=== PATIENT | male | born 1975 | race Caucasian/White ===

== ENCOUNTER 2023-06-11 12:10 | Emergency (ER) | payer SELFPAY ==
[2023-06-11 12:24] VITALS: PULSE 62; RESP 16; TEMP 36.9; O2SAT 95; BMI 25.0
[2023-06-11 12:30] VITALS: BP 169/101; PULSE 68; RESP 18; O2SAT 94
--- NOTE | 2023-06-11 12:30 | ED_ITS ---
HPI - Abdominal Pain General: Chief Complaint: Abdominal Pain Stated Complaint: abd pain and swelling Time Seen by Provider: 06/11/23 12:27 History of Present Illness: 47-year-old male presents emergency room with abdominal pain for the past 3 weeks. Patient describes the pain as cramping sensation with severity of 5 out of 10 mostly diffusely. She has also noticed some bloating and distention of his abdomen within the past 3 weeks as well. Further reviews drinking about 6 beers with 5 shots of whiskey daily for many years. Reviewed some nausea but no vomiting. Denies any vomiting blood or coughing up blood. Bloody stool or dark stool. No recent fall or trauma to the abdomen. Patient has any dysuria, hematuria urine frequency. Associated Symptoms: Reports bloating and nausea; Denies belching, chills, coffee ground emesis, constipation, diarrhea, fever(s), heartburn, hematemesis, fecal incontinence and vomiting Review of Systems General: Reports: 10 or more systems reviewed and unremarkable except in HPI and below Const: Denies: fever(s), chills, body aches, change in appetite, change in weight, fatigue, malaise, night sweats, diaphoresis, change in sleep pattern or daytime sleepiness GI: Reports: abdominal pain, nausea and bloating; Denies: vomiting, hematemesis, coffee ground emesis, dysphagia, heartburn, early satiety, diarrhea, constipation, belching, fecal incontinence, pain on defecation, rectal swelling or rectal itching Physical Exam Const: COMMON NORMALS: no acute distress, average body habitus, patient oriented x3, no limitations, healthy appearing, alert and well nourished Neck/C-Spine: COMMON NORMALS: no JVD Resp: COMMON NORMALS: normal respiratory effort, No retractions, No use of accessory muscles, clear to auscultation bilaterally and percussion normal AUSCULTATION: clear to auscultation bilaterally PERCUSSION: percussion normal Cardio: COMMON NORMALS: no JVD, regular rate, regular rhythm, S1 normal heart sound present, S2 normal heart sound present, No gallops present (Cardio), No clicks present (Cardio), No murmurs present (Cardio), No rub (Cardio) and Peripheral pulses 2+ throughout RATE: regular rate RHYTHM: regular rhythm HEART SOUNDS: S1 normal heart sound present and S2 normal heart sound present PERIPHERAL PULSES: Peripheral pulses 2+ throughout GI: INSPECTION: Yes Abdominal wall edema, No incision, No visible herniation, No visible peristalsis, No Fluid wave present, No Localized GI swelling present, No GI erythema present, No GI tube present and No GI ostomy present PERCUSSION: no fluid wave Extremity: COMMON NORMALS: normal to inspection, full ROM and capillary refill normal; negative for no joint enlargement, negative for no clubbing, cyanosis or edema, negative for no calf tenderness and negative for no pedal edema Neuro: COMMON NORMALS: patient oriented x3 SENSORIUM/ORIENTATION: Yes alert Course Vital Signs: Vital signs: Vital Signs Temperature 98.5 F 06/11/23 12:24 Pulse Rate 79 06/11/23 15:31 Respiratory Rate 17 06/11/23 15:31 Blood Pressure 131/88 06/11/23 15:31 Pulse Oximetry 93 06/11/23 15:31 Oxygen Delivery Me thod Room Air 06/11/23 13:00 MDM - Abdominal Pain Medical Decision Making Patient made comfortable emergency room patient had extensive work-up done including CBC, CMP, lipase, BMP and UA. Patient had a CT scan done. Because the lab finding and the CT finding with patient and mother. Patient reveals decreased pain upon reassessment. She will be given referral to see GI for further evaluation. He was educated about alcohol abuse. Differential Diagnosis Likely abdominal pain, acute appendicitis, calculus of kidney, constipation, diverticulitis, gastroenteritis, pancreatitis and small bowel obstruction Lab Data 06/11/23 13:52 06/11/23 13:52 Labs/Radiology: Laboratory Results WBC 9.3 10^3/uL (4.0-10.0) 06/11/23 13:52 RBC 4.39 10^6/uL (4.1-5.3) 06/11/23 13:52 Hgb 14.7 g/dL (11.7-16.6) 06/11/23 13:52 Hct 43.8 % (42.0-52.0) 06/11/23 13:52 MCV 99.8 fl (80-94) H 06/11/23 13:52 MCH 33.5 pg (28.0-34.0) 06/11/23 13:52 MCHC 33.6 g/dL (30.0-36.0) 06/11/23 13:52 RDW 13.3 % (12.1-15.1) 06/11/23 13:52 Plt Count 236 10^3/cmm (130-400) 06/11/23 13:52 MPV 10.1 fL (7.4-10.4) 06/11/23 13:52 Neut % (Auto) 70.7 % 06/11/23 13:52 Lymph % (Auto) 19.5 % 06/11/23 13:52 Cocke % (Auto) 6.5 % 06/11/23 13:52 Eos % (Auto) 1.0 % 06/11/23 13:52 Baso % (Auto) 0.9 % 06/11/23 13:52 Neut # (Auto) 6.61 10^3/uL (1.8-7.7) 06/11/23 13:52 Lymph # (Auto) 1.8 10^3/uL (0.8-4.8) 06/11/23 13:52 Cocke # (Auto) 0.6 10^3/uL (0.2-0.9) 06/11/23 13:52 Eos # (Auto) 0.1 10^3/uL (0.0-0.8) 06/11/23 13:52 Baso # (Auto) 0.1 10^3/uL (0.0-0.1) 06/11/23 13:52 Nucleated RBC % (auto) 0 % 06/11/23 13:52 Nucleated RBCs # 0.0 /100WBC 06/11/23 13:52 Sodium 139 mmol/L (136-145) 06/11/23 13:52 Potassium 4.6 mmol/L (3.5-5.1) 06/11/23 13:52 Chloride 100 mmol/L (98-107) 06/11/23 13:52 Carbon Dioxide 29 mmol/L (22-29) 06/11/23 13:52 Anion Gap 14.6 (5-19) 06/11/23 13:52 BUN 6 mg/dL (6-20) 06/11/23 13:52 Creatinine 0.6 mg/dL (0.7-1.2) L 06/11/23 13:52 GFR Calculation 145.7 mL/min (90-130) H 06/11/23 13:52 Glucose 110 mg/dL (65-115) 06/11/23 13:52 Calculated Osmolality 286 mOsm/kg (285-295) 06/11/23 13:52 Calcium 9.8 mg/dL (8.5-10.5) 06/11/23 13:52 Total Bilirubin 0.5 mg/dL (0.15-1.2) 06/11/23 13:52 AST 52 U/L (0-40) H 06/11/23 13:52 ALT 52 U/L (0-41) H 06/11/23 13:52 Alkaline Phosphatase 121 U/L (40-130) 06/11/23 13:52 NT-Pro-B Natriuret Pep 138 pg/mL (0-125) H 06/11/23 13:52 Total Protein 7.4 g/dL (6.6-8.7) 06/11/23 13:52 Albumin 4.4 g/dL (3.5-5.2) 06/11/23 13:52 Globulin 3.0 g/dL (1.3-4.6) 06/11/23 13:52 Lipase 14 U/L (13-60) 06/11/23 13:52 Urine Color Straw (Yellow) 06/11/23 13:52 Urine Appearance Clear (CLEAR) 06/11/23 13:52 Urine pH 7 (5-7) 06/11/23 13:52 Ur Specific [place] 1.005 (1.005-1.030) 06/11/23 13:52 Urine Protein Neg (Negative) 06/11/23 13:52 Urine Glucose (UA) Norm (Normal) 06/11/23 13:52 Urine Ketones Negative (Negative) 06/11/23 13:52 Urine Blood Neg (Negative) 06/11/23 13:52 Urine Nitrate Negative (Negative) 06/11/23 13:52 Urine Bilirubin Neg (Negative) 06/11/23 13:52 Urine Urobilinogen Norm mg/dL (Negative) 06/11/23 13:52 Ur Leukocyte Esterase Negative (Negative) 06/11/23 13:52 Ethyl Alcohol < 10 mg/dL (0-10) 06/11/23 13:52 Discharge Plan Discharge Patient Disposition: Home Clinical Impression: Abdominal pain, Transaminitis, Alcohol abuse Condition: Stable Prescriptions: New promethazine 25 mg tablet 25 mg PO Q6H PRN (Reason: nausea and vomiting) Qty: 20 0RF Rx Instructions: 3 doses during day; last dose no later than 4 hr before bedtime dicyclomine 20 mg tablet 20 mg PO BID PRN (Reason: abd pain ) Qty: 30 0RF No Action Celebrex 200 mg Capsule 200 mg PO DAILY propranolol 60 mg Capsule,Extended Release 24 Hr 60 mg PO DAILY Tums 500 500 mg calcium (1,250 mg) Tablet,Chewable 500 mg PO Q6H PRN (Reason: Indigestion) albuterol sulfate 90 mcg/actuation Hfa Aerosol Inhaler 2 puff INHALATION Q6H PRN (Reason: Shortness Of Breath) Discharge Orders: Discharge ED (Routine); Ordered 06/11/23 Ordered By: Krista Daniels Referrals: Cail Coon DO [Physician] - 7-10 days Discharge Diet: Advance as tolerated Discharge Activity: Resume usual activity Patient Instructions: Abdominal Pain (ED), Opioid Safety, Pain Management Coding Level of Care Code ED [employer] for Nghia Chacon
[2023-06-11 13:00] VITALS: BP 151/94; PULSE 69; RESP 16; O2SAT 94
--- NOTE | 2023-06-11 13:31 | CT_ITS ---
WS: [id number] CT ABDOMEN AND PELVIS WITH CONTRAST HISTORY: Lower abdominal pain for 3 weeks TECHNIQUE: Imaging performed of the abdomen and pelvis with IV contrast. Single phase imaging of the abdomen. Coronal and sagittal reformats are submitted. All CT scans at [facility] use at [address] one of these dose optimization techniques: automated exposure control; mA and/or kV adjustment per patient size (includes targeted exams where dose is matched to clinical indication); or iterative re construction. IV CONTRAST: Omnipaque 350; 100 mL IV. Oral contrast: No DLP: 614.63 mGy.cm COMPARISON: None available. Lower thorax: Lung bases are clear. Heart is normal size. Small fat-containing umbilical hernia. Liver/biliary system: Low-attenuation area is too small to characterize in the medial segment left lo be of the liver measuring 12 mm. This is close to the marck hepatis. Mild hepatic steatosis. Gallbladder: Cholelithiasis without acute cholecystitis. No gallbladder wall thickening or pericholec ystic fluid. Pancreas: Normal size pancreas and pancreatic duct. No adjacent inflammation. Spleen: Incidental note is made of a splenule. Normal spleen. Adrenal glands: Normal. Right kidney: Superior pole right renal cyst measures 6 mm. No solid mass right kidney. Left kidney: Normal. Aorta: Mild atherosclerosis abdominal aorta with no aneurysm. Lymphadenopathy: None. Free fluid: None. GI tract: Normally distended stomach. No small bowel obstruction. Normal appendix. No diverticulitis. Abdominal wall: Unremarkable abdominal wall. No hernia. Pelvis: Mild prostate gland enlargement. Bones: Unremarkable. IMPRESSION: 1. No acute abdominal or pelvic abnormalities are identified. 2. No evidence for diverticulitis. 3. Normal appendix. 4. Mild atherosclerosis aorta. 5. Too small to characterize 12 mm area of decreased attenuation in the liver. Favor this is probabl y hepatic steatosis or small cluster of cyst. 6. Cholelithiasis without acute cholecystitis.
[2023-06-11 13:51] VITALS: RESP 18; O2SAT 94
[2023-06-11] MEDS: morphine 4 mg/mL SDV 1 mL IVP (13:51)
[2023-06-11] MEDS: ondansetron 2 mg/ML SDV 2 mL 4 MG IVP (13:51)
[2023-06-11 13:59] LABS: Add Urine Microscopic? NO; Charge for UA Resulting for Rev
[2023-06-11 14:01] LABS: Basophils # 0.1 10^3/uL (0.0-0.1); Basophils % 0.9 %; Eosinophils # 0.1 10^3/uL (0.0-0.8); Hematocrit 43.8 % (42.0-52.0); Hemoglobin 14.7 g/dL (11.7-16.6); Lymphocytes # 1.8 10^3/uL (0.8-4.8); Lymphocytes % 19.5 %; Mean Corpuscular HGB Conc 33.6 g/dL (30.0-36.0); Mean Corpuscular Hemoglobin 33.5 pg (28.0-34.0); Mean Corpuscular Volume 99.8 fl (80-94); Mean Platelet Volume 10.1 fL (7.4-10.4); Monocytes # 0.6 10^3/uL (0.2-0.9); Monocytes % 6.5 %; Neutrophils # 6.61 10^3/uL (1.8-7.7); Neutrophils % 70.7 %; Nucleated Red Blood Cells % 0 %; Platelet Count 236 10^3/cmm (130-400); Red Blood Count 4.39 10^6/uL (4.1-5.3); Red Cell Distribution Width 13.3 % (12.1-15.1); White Blood Count 9.3 10^3/uL (4.0-10.0)
[2023-06-11 14:06] LABS: Bilirubin Urine Neg (Negative); Blood Urine Neg (Negative); Glucose Urine UA Norm (Normal); Ketones Urine Negative (Negative); Leukocyte Esterase Urine Negative (Negative); Nitrate Urine Negative (Negative); Protein Urine Neg (Negative); Specific Gravity, Urine 1.005 (1.005-1.030); Urine Appearance Clear (CLEAR); Urine Color Straw (Yellow); Urobilinogen Urine Norm (Negative); pH Urine 7 (5-7)
[2023-06-11] MEDS: iohexol 350 mg/mL 500 mL Btl (per mL) IV (14:15)
[2023-06-11 14:31] LABS: Alanine Aminotransferase 52 U/L (0-41); Albumin Level 4.4 g/dL (3.5-5.2); Alkaline Phosphatase 121 U/L (40-130); Anion Gap 14.6 (5-19); Aspartate Amino Transferase 52 U/L (0-40); Blood Urea Nitrogen 6 mg/dL (6-20); Calcium 9.8 mg/dL (8.5-10.5); Carbon Dioxide 29 mmol/L (22-29); Chloride 100 mmol/L (98-107); Glomerular Filtration Rate 145.7 mL/min (90-130); Glucose 110 mg/dL (65-115); Lipase 14 U/L (13-60); NT Pro B Type Natriuretic Pept 138 pg/mL (0-125); Osmolality Calculated 286 mOsm/kg (285-295); Potassium 4.6 mmol/L (3.5-5.1); Sodium 139 mmol/L (136-145); Total Bilirubin 0.5 mg/dL (0.15-1.2); Total Protein 7.4 g/dL (6.6-8.7)
[2023-06-11 14:32] LABS: Alcohol Level < 10 mg/dL (0-10)
[2023-06-11 15:31] VITALS: BP 131/88; PULSE 79; RESP 17; O2SAT 93
== END 2023-06-11 15:33 | disposition home or self-care (01) ==
PROVIDERS: Emergency Provider Family Medicine
DX: R10.9 Unspecified abdominal pain (principal); R74.01 Elevation of levels of liver transaminase levels; F10.10 Alcohol abuse, uncomplicated; Y90.0 Blood alcohol level of less than 20 mg/100 ml
CPT/HCPCS: 74177; 80053; 80307; 81003; 83690; 83880; 85025; 96374; 96375; 99285; J2270; J2405; Q9967